=== PATIENT | female | born 1975 | race Caucasian/White ===

== ENCOUNTER 2016-10-27 10:33 | Emergency (ER) | payer SELFPAY ==
[~2016-10-27] VITALS: Ht 160 cm; Wt 70.0 kg
[2016-10-27 10:38] VITALS: BP 134/81; PULSE 86; RESP 12; TEMP 97.6; O2SAT 98
--- NOTE | 2016-10-27 11:08 | PD ---
HPI Chief Complaint: Injury Time Seen by Provider: 11:08 Travel History International Travel<30 days: No Contact w/Intl Traveler<30days: No Traveled to known affect area: No History of Present Illness HPI 41-year-old female presents to the emergency Department with complaint of left shoulder and elbow pain after tripping over an oxygen machine and falling to her left side. She denies hitting her head or loss of consciousness. Denies neck pain or back pain. Denies anticoagulants. Denies nausea, vomiting. Denies paresthesias, loss of sensation to the affected extremity. Reports decreased range of motion at the shoulder and elbow secondary to pain. Denies forearm pain, wrist pain, hand pain. Denies chest pain, shortness of breath, abdominal pain. Denies other extremity pain. Denies fever, chills. Took Tylenol approximately 3 hours ago with minimal relief of pain. No known allergies. No other modifying factors or associated signs and symptoms. PFSH Past Medical History ?: Not Past Surgical History Hysterectomy: Yes Social History Alcohol Use: No Tobacco Use: No Allergies-Medications (Allergen,Severity, Reaction): Coded Allergies: No Known Allergies (Unverified , 10/27/16) Reported Meds & Prescriptions Reported Meds & Active Scripts Active Naproxen 500 Mg Tab 500 Mg PO BID PRN Review of Systems Except as stated in HPI: all other systems reviewed are Neg Physical Exam Narrative GENERAL: Well-nourished, well-developed female patient, in no acute distress SKIN: Warm and dry. HEAD: Atraumatic. Normocephalic. EYES: Pupils equal and round. No scleral icterus. No injection or drainage. ENT: Mucosa pink and moist. Airway patent. NECK: Supple. Trachea midline. CARDIOVASCULAR: Regular rate and rhythm. No murmur appreciated. RESPIRATORY: No accessory muscle use. Clear to auscultation. Breath sounds equal bilaterally. GASTROINTESTINAL: Rounded. MUSCULOSKELETAL: Left shoulder with limited range of motion and less than 45 abduction; without erythema, edema, ecchymosis; with tenderness on palpation; no obvious deformities; shoulders equal. Left elbow with tenderness on palpation without erythema, edema, ecchymosis; no obvious deformity; with good range of motion but limited extension secondary to pain. Left upper extremity supple and non-tense with 2+ radial pulse and sensory intact. Left wrist and hand with full range of motion without erythema, edema. No obvious deformities. No clubbing. No cyanosis. No edema. NEUROLOGICAL: Awake and alert. Oriented 3. No obvious cranial nerve deficits. Motor grossly within normal limits. Normal speech. PSYCHIATRIC: Appropriate mood and affect; insight and judgment normal. Data Data Last Documented VS Vital Signs Date Time Temp Pulse Resp B/P Pulse Ox O2 Delivery O2 Flow Rate FiO2 10/27/16 10:38 97.6 86 12 134/81 98 Room Air Orders Elbow, Complete (4 Vws) (10/27/16 11:08) Shoulder, Complete (>2vws) (10/27/16 11:08) Ice/Cold Pack (10/27/16 11:08) Sling Cradle Arm (10/27/16 ) MDM Medical Decision Making Medical Screen Exam Complete: Yes Emergency Medical Condition: Yes Medical Record Reviewed: Yes Differential Diagnosis Fall, Shoulder sprain, arm sprain, fracture, dislocation Narrative Course 41-year-old female with left shoulder and elbow injury after a mechanical fall today. Denies hitting her head or loss of consciousness. Denies neck pain or back pain. I offered patient a nonnarcotic while in the ER and she declined. Left shoulder and elbow x-ray ordered. 1224: Left elbow x-ray concludes Negative for fracture or dislocation. Followup in 7-10 days is suggested if symptoms persist. Left shoulder x-ray concludes Negative for fracture or dislocation. Followup in 7-10 days is suggested if symptoms persist. Arm sling provided for support. Naproxen prescribed for home. Instructed patient to follow up with orthopedic if symptoms persist greater than 7-10 days and she verbalized understanding and agreement with treatment plan. Patient is medically cleared and stable for discharge. Discussed reasons to return to the emergency department. Instructed patient to follow up with primary care provider. Patient agrees with treatment plan. The patients vital signs are stable and the patient is stable for outpatient follow-up and treatment. Patient discharged home, stable and in no acute distress. Diagnosis Primary Impression: Fall Qualified Code: W19.XXXA - Fall, initial encounter Additional Impression: Strain of left upper arm Qualified Code: S46.912A - Strain of left upper arm, initial encounter Referrals: Orthopedist Primary Care Physician Patient Instructions: Elbow Sprain (ED), Fall Prevention (ED), General Instructions, Shoulder Sprain (ED) Departure Forms: Tests/Procedures, Work Release Enter return to work date: Nov 03, 2016 Additional Instructions: Tylenol or ibuprofen as needed and as directed to reduce pain and inflammation Rest, ice, and compress extremity to decrease pain and inflammation Arm sling for support Avoid aggravating activity; increase activity as tolerated Follow-up with primary care provider Follow-up with orthopedics as needed Return to the emergency department immediately with worsening symptoms Med/Other Pt SpecificInfo: Prescription(s) given Scripts Naproxen 500 Mg [id number] Mg PO BID PRN (PAIN SCALE 1 TO 10) #20 TAB Ref 0 Prov:Maki Brewer 10/27/16 Disposition: 01 DISCHARGE HOME Condition: Stable Maki Brewer Oct 27, 2016 11:08
--- NOTE | 2016-10-27 12:13 | RADRPT ---
EXAM DATE/TIME: 10/27/2016 11:22 [facility] COMPARISON: No previous studies available for comparison. INDICATIONS : Left elbow pain, fall. MEDICAL HISTORY : None. SURGICAL HISTORY : None. ENCOUNTER: Initial ACUITY: 2 days PAIN SCORE: 10/10 LOCATION: Left elbow FINDINGS: Multiple view examination of the left elbow demonstrates no soft tissue swelling, joint effusion, or fracture. The osseous structures are in normal alignment. Bony mineralization is normal. CONCLUSION: Negative for fracture or dislocation. Followup in 7-10 days is suggested if symptoms persist. Johnie Delaney MD FACR on October 27, 2016 at 12:07 Board Certified Radiologist. This report was verified electronically.
--- NOTE | 2016-10-27 12:14 | RADRPT ---
EXAM DATE/TIME: 10/27/2016 11:26 [facility] COMPARISON: No previous studies available for comparison. INDICATIONS : Left shoulder pain, fall. MEDICAL HISTORY : None. SURGICAL HISTORY : None. ENCOUNTER: Initial ACUITY: 1 day PAIN SCORE: 7/10 LOCATION: Left proximal shoulder FINDINGS: Multiple view examination of the left shoulder demonstrates no evidence of fracture or dislocation. The glenohumeral and acromioclavicular joints are maintained. There is normal range of motion betwee n internal and external rotation. Bony mineralization is normal. CONCLUSION: Negative for fracture or dislocation. Followup in 7-10 days is suggested if symptoms persist. Johnie Delaney MD FACR on October 27, 2016 at 12:12 Board Certified Radiologist. This report was verified electronically.
[2016-10-27] MEDS ORDERED: NAPR500T PO (12:26)
== END 2016-10-27 12:36 | disposition home or self-care (01) ==
LOC: NEPB 10:33
DX: S46.912A Strain of unspecified muscle, fascia and tendon at shoulder and upper arm level, left arm, initial encounter (principal); W18.09XA Striking against other object with subsequent fall, initial encounter; Y92.009 Unspecified place in unspecified non-institutional (private) residence as the place of occurrence of the external cause
CPT/HCPCS: 73030; 73080; 99283